=== PATIENT | male | born 1980 | race Two or more races ===

== ENCOUNTER 2020-10-30 22:19 | Emergency (ER) | payer OTHER ==
[~2020-10-30] VITALS: Ht 185.4 cm; Wt 95.3 kg
[2020-10-31] MEDS ORDERED: NORFLEX100MG PO (00:45)
[2020-10-31] MEDS ORDERED: KETO10TA2 PO (00:50)
== END 2020-10-31 05:32 | disposition home or self-care (01) ==
LOC: ER 22:19
DX: S30.0XXA Contusion of lower back and pelvis, initial encounter (principal); W10.8XXA Fall (on) (from) other stairs and steps, initial encounter; Y93.89 Activity, other specified; Y92.89 Other specified places as the place of occurrence of the external cause; Y99.8 Other external cause status